=== PATIENT | female | born 1960 | race Caucasian/White ===

== ENCOUNTER 2025-05-12 17:14 | Emergency (ER) | payer MEDICAID ==
[2025-05-12 17:52] LABS: MEAN PLATELET VOLUME 7.8 fL (7.1-12.4); PLATELET COUNT,PLT 247 x10(3)uL (151-488); RED BLOOD CELL COUNT 4.01 x10(6)uL (3.60-5.20); RED CELL DISTRIBUTION WIDTH 19.8 % (12.3-16.5); WHITE BLOOD CELL COUNT,WBC 8.4 x10-3/uL (3.0-10.3)
[2025-05-12 17:59] LABS: BLOOD UREA NITROGEN,BUN 18 mg/dL (7-18); CARBON DIOXIDE,CO2 27 mmol/L (21-32); CHLORIDE,CL 107 mmol/L (100-110); CREATININE 0.9 mg/dL (0.55-1.02); EST CRCL DRUG DOSING (CG) 48.63 mL/min; ESTIMATED GFR 71 mL/min (>60); GLUCOSE RANDOM 99 mg/dL (80-116); POTASSIUM,K 3.2 mmol/L (3.5-5.3); SODIUM,NA 143 mmol/L (135-145)
[2025-05-12 18:05] LABS: A/G RATIO 0.8; ALANINE AMINOTRANSFERASE,ALT 18 U/L (12-36); ASPARTATE AMNIOTRANSFERASE,AST 26 IU/L (5-25); BILIRUBIN TOTAL 0.3 mg/dL (0.1-1.3); PROTEIN TOTAL,TP 6.9 g/dL (6.0-8.0)
[2025-05-12 18:21] LABS: EOSINOPHILS PERCENT MAN 8 % (0-5); LYMPHOCYTES PERCENT MAN 29 % (13-37); MONOCYTES PERCENT MAN 12 % (4-12); SEG NEUTROPHILS PERCENT MAN 51 % (46-82)
[2025-05-12 18:40] LABS: GLUCOSE,URINE 250 mg/dL (NORMAL); OCCULT BLOOD,URINE LARGE (NEGATIVE)
[2025-05-12 18:48] LABS: APPEARANCE,URINE CLOUDY (CLEAR)
[2025-05-12 18:49] LABS: SQUAMOUS EPITHELIAL CELLS,UR MODERATE (NS,R,O)
== END 2025-05-12 19:40 | disposition home or self-care (01) ==
LOC: FB.ED 17:14
DX: N39.0 Urinary tract infection, site not specified (principal); F17.200 Nicotine dependence, unspecified, uncomplicated; Z91.041 Radiographic dye allergy status; Z88.2 Allergy status to sulfonamides; Z88.8 Allergy status to other drugs, medicaments and biological substances; Z86.73 Personal history of transient ischemic attack (TIA), and cerebral infarction without residual deficits
CPT/HCPCS: 36415; 51702; 51798; 80053; 81001; 85025; 87086; 87088; 87186; 99284; A9270-GY

== ENCOUNTER 2025-05-22 00:33 | Emergency (ER) | payer MEDICARE, MEDICAID | END 2025-05-22 01:30 | disposition home or self-care (01) | LOC: FB.ED 00:33 | DX: T83.031A Leakage of indwelling urethral catheter, initial encounter (principal); Z91.041 Radiographic dye allergy status; Z88.2 Allergy status to sulfonamides; Z88.8 Allergy status to other drugs, medicaments and biological substances; Z86.73 Personal history of transient ischemic attack (TIA), and cerebral infarction without residual deficits; Y84.6 Urinary catheterization as the cause of abnormal reaction of the patient, or of later complication, without mention of misadventure at the time of the procedure | CPT/HCPCS: 51702; 99283 ==

== ENCOUNTER 2025-06-11 11:22 | Emergency (ER) | payer MEDICARE, MEDICAID ==
[2025-06-11] MEDS: methylPREDNISolone Sodium Succinate 125 MG/2 ML SDV IM ONE (12:14)
[2025-06-11 12:23] LABS: MEAN PLATELET VOLUME 8.6 fL (7.1-12.4); PLATELET COUNT,PLT 188 x10(3)uL (151-488); RED BLOOD CELL COUNT 4.37 x10(6)uL (3.60-5.20); RED CELL DISTRIBUTION WIDTH 19.9 % (12.3-16.5); WHITE BLOOD CELL COUNT,WBC 8.2 x10-3/uL (3.0-10.3)
[2025-06-11 12:27] LABS: BLOOD UREA NITROGEN,BUN 11 mg/dL (7-18); CARBON DIOXIDE,CO2 25 mmol/L (21-32); CHLORIDE,CL 108 mmol/L (100-110); CREATININE 0.8 mg/dL (0.55-1.02); EST CRCL DRUG DOSING (CG) 57.22 mL/min; ESTIMATED GFR 81 mL/min (>60); GLUCOSE RANDOM 94 mg/dL (80-116); POTASSIUM,K 3.2 mmol/L (3.5-5.3); SODIUM,NA 143 mmol/L (135-145)
[2025-06-11 12:33] LABS: A/G RATIO 0.9; ALANINE AMINOTRANSFERASE,ALT 14 U/L (12-36); ASPARTATE AMNIOTRANSFERASE,AST 17 IU/L (5-25); BILIRUBIN TOTAL 0.3 mg/dL (0.1-1.3); PROTEIN TOTAL,TP 6.3 g/dL (6.0-8.0)
[2025-06-11 12:35] LABS: EOSINOPHILS PERCENT MAN 4 % (0-5); LYMPHOCYTES PERCENT MAN 27 % (13-37); MONOCYTES PERCENT MAN 6 % (4-12); SEG NEUTROPHILS PERCENT MAN 63 % (46-82)
== END 2025-06-11 15:00 | disposition home or self-care (01) ==
LOC: FB.ED 11:22
DX: M54.16 Radiculopathy, lumbar region (principal); E11.42 Type 2 diabetes mellitus with diabetic polyneuropathy; Z91.041 Radiographic dye allergy status; Z86.73 Personal history of transient ischemic attack (TIA), and cerebral infarction without residual deficits
CPT/HCPCS: 36415; 72131; 80053; 85025; 86140; 96372; 99284; A9270-GY; J2919

== ENCOUNTER 2025-06-19 16:10 | Emergency (ER) | payer MEDICARE, MEDICAID ==
[2025-06-19 16:44] LABS: GLUCOSE,URINE 250 mg/dL (NORMAL); OCCULT BLOOD,URINE LARGE (NEGATIVE)
[2025-06-19 16:45] LABS: APPEARANCE,URINE SLIGHTLY CLOUDY (CLEAR)
[2025-06-19 16:46] LABS: SQUAMOUS EPITHELIAL CELLS,UR FEW (NS,R,O)
== END 2025-06-19 18:10 ==
LOC: FB.ED 16:10
DX: T83.511A Infection and inflammatory reaction due to indwelling urethral catheter, initial encounter (principal); N39.0 Urinary tract infection, site not specified; I10 Essential (primary) hypertension; Z88.2 Allergy status to sulfonamides; Z91.041 Radiographic dye allergy status; Z88.8 Allergy status to other drugs, medicaments and biological substances
CPT/HCPCS: 51702; 81001; 87086; 87088; 87186; 99283; A9270

== ENCOUNTER 2025-06-20 09:07 | Emergency (ER) | payer MEDICARE, MEDICAID | END 2025-06-20 12:10 | disposition home or self-care (01) | LOC: FB.ED 09:07 | DX: N39.0 Urinary tract infection, site not specified (principal); R51.9 Headache, unspecified; I10 Essential (primary) hypertension; J45.909 Unspecified asthma, uncomplicated; Z91.041 Radiographic dye allergy status; Z88.8 Allergy status to other drugs, medicaments and biological substances; Z88.2 Allergy status to sulfonamides | CPT/HCPCS: 99283; A9270 ==